=== PATIENT | female | born 1985 | race Caucasian/White ===

== ENCOUNTER 2016-07-31 19:13 | Emergency (ER) | payer OTHER ==
[2016-07-31 19:19] VITALS: BP 142/82
[2016-07-31] MEDS ORDERED: NORMAL SALINE 1,000 ML IV ONE ×2 (19:33→20:07)
[2016-07-31] MEDS ORDERED: METOCLOPRAMIDE HCL 5 MG/ML VIAL IV ONE (19:33)
[2016-07-31] MEDS ORDERED: METOCLOPRAMIDE HCL 5 MG/ML VIAL ONE (19:40)
--- NOTE | 2016-07-31 19:44 | ERNOTE ---
Medical Problem HPI - Narrative Date of Service: 07/31/16 - General Chief Complaint: Nausea/Vomiting Time Seen by Provider: 07/31/16 19:24 Source: patient, RN notes reviewed Exam Limitations: no limitations - Immun/Allergies/Home Medications Immunizations: IMMUNIZATION HX Immunizations Up to Date Yes History of Influenza Vaccine Yes Hx Pneumococcal Vaccination Yes Allergies/Adverse Reactions: Allergies No Known Allergies Allergy (Verified 07/31/16 19:18) Home Medications: HOME MEDICATIONS Atenolol [Tenormin] 25 mg PO DAILY 01/21/14 [Last Taken 10/31/15] busPIRone HCL [Buspar] 15 mg PO BID 01/21/14 [Last Taken 10/31/15] hydrOXYzine PAMOATE [Vistaril] 25 mg PO Q4H PRN 07/31/16 [Last Taken Unknown] - History of Present History Narrative: Sofi is a 31 year old female who presents to the ED for vomiting that began yesterday. She is currently 17 weeks . She has not had any issues with vomiting during this . Her and child have had vomiting and diarrhea in the past few days. She also reports a low grade fever and body aches. Review of Systems - Review of Systems Constitutional: Present: fatigue, malaise EYE: Present: no symptoms reported ENT: Present: no symptoms reported Respiratory: Present: no symptoms reported Cardiology: Absent: chest pain, syncope Gastrointestinal/Abdominal: Present: nausea, vomiting, eating less, drinking less. Absent: diarrhea, abdominal pain Genitourinary: Absent: pain, dysuria, hematuria Musculoskeletal: Present: muscle pain Skin: Present: no symptoms reported Neurological: Absent: headache, dizziness/light-headedness Endocrine: Present: no symptoms reported Hematologic/Lymphatic: Present: no symptoms reported Psych: Present: no symptoms reported - Patient's Past Medical History Patient History - Medical: Anxiety, Hypothyroidism, Kidney stone Patient History - Cardiac/Respiratory: No pertinent hx Patient History - Cancer: No Hx of Cancer Patient History - Surgical Procedures: No surgical history, LMP (females 10-50): - Family History Mother Family History - Medical: Diabetes Type 2 Family History - Cardiac/Respiratory: Hypertension, Hyperlipidemia Father Family History - Medical: Anxiety Family History - Cardiac/Respiratory: No pertinent hx - Social History Living Situations: home Smoking Status: Never smoker Have you smoked in the past 12 months: No Do you dip or chew tobacco: No Alcohol Use: occasionally Drug Use: none Physical Exam - Physical Exam General Appearance: Present: wd/wn, alert, other - appears uncomfortable Neck: Present: normal inspection, nontender, supple Respiratory: Present: no respiratory distress, normal breath sounds, no accessory muscle use, lungs clear Cardiovascular/Chest: Present: regular rate, rhythm, no murmur Gastrointestinal/Abdominal: Present: normal bowel sounds, nontender, soft, distended - gravid uterus Neurological Exam: Present: alert, oriented, normal mood/affect Skin Exam: Present: warm/dry, pallor ED Progress - Vital Signs Patient's Vital Signs:: I have reviewed the patient's vital signs. Vital Signs: Vital Signs 07/31/16 19:16 Temperature 36.1 C L Pulse Rate 106 H Respiratory 14 Rate Blood Pressure 142/82 O2 Sat by Pulse 100 Oximetry - Progress/Reassessment Chief Complaint: Nausea/Vomiting Progress:: Improved Progress Note-Subjective: 07/31/16 20:40 Patient states she is feeling better after IVF and Reglan, discussed oral intake and follow up care Departure - Departure Clinical Impression: Acute vomiting Disposition: Home self-care Condition: Good Instructions: Viral Gastroenteritis, Adult, Sspq-vl-Fbal Additional Instructions: Liquids as discussed - advance diet as tolerated Follow up if symptoms persist/worsen Referrals: Kristin Hawkins MD [Primary Care Provider] -
== END 2016-07-31 21:00 | disposition home or self-care (01) ==
LOC: ER 19:13
DX: R11.10 Vomiting, unspecified (principal); O26.899 Other specified pregnancy related conditions, unspecified trimester; F41.1 Generalized anxiety disorder; Z3A.17 17 weeks gestation of pregnancy

== ENCOUNTER 2016-12-22 10:39 | Inpatient (IN) | payer OTHER ==
[2016-12-22] MEDS ORDERED: ceFAZolin SODIUM/DEXTROSE,ISO 2 GM/50 ML BAG IV ONE (10:49)
[2016-12-22] MEDS ORDERED: DEXTROSE 5%-LACTATED RINGERS 1,000 ML IV PRN ×2 (10:49→13:21)
[2016-12-22] MEDS ORDERED: OXYTOCIN 20 UNITS in RINGERS SOLUTION,LACTATED 1,000 ML IV ONE (10:49)
[2016-12-22] MEDS: RINGERS SOLUTION,LACTATED 1,000 ML IV PRN ×2 (11:02→12:00)
[2016-12-22] MEDS ORDERED: RINGERS SOLUTION,LACTATED 1,000 ML IV ONE (13:06)
[2016-12-22] MEDS ORDERED: hydrOXYzine PAMOATE 25 MG CAPSULE PO PRN (13:21)
[2016-12-22] MEDS ORDERED: BISACODYL 10 MG SUPP.RECT RC PRN (13:21)
[2016-12-22] MEDS ORDERED: SIMETHICONE 80 MG TAB.CHEW PO PRN (13:21)
[2016-12-22] MEDS ORDERED: SENNOSIDES 8.6 MG TABLET PO PRN (13:21)
[2016-12-22] MEDS ORDERED: ONDANSETRON HCL/PF 2 MG/ML VIAL IV PRN (13:21)
--- NOTE | 2016-12-22 13:34 | OR ---
Operative Report - Dictated Report Narrative: Indication: 31-year-old 2 para 01 at 37-6/7 weeks in labor with prior section and desiring permanent sterilization. Pre Operative Diagnosis: 37-6/7 week intrauterine , prior section in active labor, chronic hypertension, insulin-dependent gestational diabetes, anxiety disorder, desires permanent sterilization via bilateral salpingectomy Post Operative Diagnosis: Same. Procedure: Repeat low transverse section. Abdominal scar revision - 5 cm, bilateral salpingectomy Surgeon: Amanda Browne DO Service Delivery Manager: OR staff Anesthesia: Spinal, TAP block Estimated Blood Loss: 225 mL Urine Output: 225 mL clear urine Fluids Replacement: 2200 mL Drains: Andrade to gravity Surgical Complications: None Specimens: Placenta to freezer Findings: Male in cephalic presentation born at 1219 on 12/22/2016 with Apgars 9 and 9, weighing 2865 g. Normal uterus, tubes, ovaries Technique: The patient was taken to the operating room and placed in dorsal supine position with a left lateral tilt. After adequate spinal anesthesia, andrade catheter inserted, SCDs placed, and 2 g of Ancef given preoperatively, a 5cm section of the previous scar was excised in an elliptical fashion and the abdominal cavity was entered using sharp and blunt dissection. Two rolled laps were placed in the pericolic gutters on either side of the uterus. A transverse incision was made in the lower uterine segment and extended laterally and upwardly with digital traction. Clear fluid was noted upon amniotomy. The was delivered easily. The cord was clamped and cut and infant was handed off to awaiting supervisory it specialist. The placenta was allowed to deliver spontaneously. The uterus was cleared of clot and debris. Uterine incision was closed with 0 Vicryl using a running stitch. A second imbricating layer was placed. Excellent hemostasis was noted. The right fallopian tube was identified and followed out the fimbriated end. The tube was coagulated with Kleppinger's approximately 2 simmers from the cornual region and along the mesosalpinx. The tube was excised and the exact same was done on the patient's left side. The rolled laps were removed from the abdominal cavitiy. The peritoneum was closed with a running 3-0 Monocryl. The same suture was used to approximate the rectus and pyramidalis muscles. The fascia was closed with a running 0 Vicryl. The subcutaneous layer was closed with a running 3-0 Monocryl. The same suture was used to approximate the subdermal layer. The skin was closed with a running 4-0 Monocryl and Dermabond. Sponge, lap, needle , and instrument count were correct x 2. Disposition: To post anesthesia care unit in good condition
[2016-12-22] MEDS: oxyCODONE HCL/ACETAMINOPHEN 1 TAB TABLET PO PRN ×3 (14:09→20:38)
[2016-12-22] MEDS: IBUPROFEN 800 MG TABLET PO PRN ×2 (14:09→20:37)
[2016-12-22] MEDS: DOCUSATE SODIUM 100 MG CAPSULE PO SCH (20:37)
[2016-12-22] MEDS: ENOXAPARIN SODIUM 40 MG/0.4 ML SYRG SC SCH (20:37)
[2016-12-23] MEDS: oxyCODONE HCL/ACETAMINOPHEN 1 TAB TABLET PO PRN ×6 (01:06→23:21)
[2016-12-23] MEDS: IBUPROFEN 800 MG TABLET PO PRN ×3 (06:27→19:27)
[2016-12-23] MEDS: PANTOPRAZOLE SODIUM 20 MG TABLET.DR PO SCH (07:55)
[2016-12-23] MEDS: DOCUSATE SODIUM 100 MG CAPSULE PO SCH ×2 (08:00→20:45)
[2016-12-23] MEDS: ATENOLOL 25 MG TABLET PO SCH (08:00)
[2016-12-23] MEDS: PRENATAL VIT#96/FERROUS FUM/FA 1 TAB TABLET PO SCH (10:04)
--- NOTE | 2016-12-23 12:51 | PN ---
Subjective - Date and Time Seen Date: 12/23/16 Time: 12:49 Objective - Vitals Vitals: Last Vital Signs Temp 36.4 C L 12/23/16 11:05 Pulse 77 12/23/16 11:05 Resp 77 H 12/23/16 11:05 BP 118/70 12/23/16 11:05 Pulse Ox 96 12/23/16 11:05 Patient denies complaints. Tolerating regular diet. Ambulating without difficulty. Pain well controlled. Lochia wnl. Fasting blood sugar one-hour postprandial within normal limits Abdomen - soft, appropriately tender Incision - clean, dry, intact Uterus - firm, at umbilicus -1 No calf tenderness Impression: Post op day #1 s/p repeat section with bilateral salpingectomy. Gestational diabetes resolved. Chronic hypertension stable. Plan: Continue routine post-operative/ care Cauti Physician Documentation - Urinary Catheter Management Urethral ([place]) Date of Insertion: 12/22/16 Time of Insertion: 12:15 Date of Removal: 12/23/16 Time of Removal: 00:50
[2016-12-23] MEDS: ENOXAPARIN SODIUM 40 MG/0.4 ML SYRG SC SCH (19:28)
--- NOTE | 2016-12-24 06:26 | PN ---
Subjective - Date and Time Seen Date: 12/24/16 Time: 06:25 Objective - Vitals Vitals: Last Vital Signs Temp 36.2 C L 12/23/16 21:00 Pulse 54 L 12/23/16 23:30 Resp 17 12/23/16 23:30 BP 114/71 12/23/16 23:30 Pulse Ox 98 12/23/16 23:30 Patient denies complaints. Ambulating well. Tolerating regular diet. Pain well controlled. Lochia wnl. Abdomen - soft, appropriately tender Incision - clean, dry, intact Uterus - firm, at umbilicus -2 No calf tenderness Impression: Post op day #2 s/p repeat section with bilateral salpingectomy and abdominal scar revision. Chronic hypertension-stable. Gestational diabetes-resolved. Plan: Continue routine post-operative/ care Cauti Physician Documentation - Urinary Catheter Management Urethral ([place]) Date of Insertion: 12/22/16 Time of Insertion: 12:15 Date of Removal: 12/23/16 Time of Removal: 00:50
[2016-12-24] MEDS: oxyCODONE HCL/ACETAMINOPHEN 1 TAB TABLET PO PRN ×4 (06:37→19:55)
[2016-12-24] MEDS: IBUPROFEN 800 MG TABLET PO PRN ×3 (06:37→19:54)
[2016-12-24] MEDS: PANTOPRAZOLE SODIUM 20 MG TABLET.DR PO SCH (06:45)
[2016-12-24] MEDS: PRENATAL VIT#96/FERROUS FUM/FA 1 TAB TABLET PO SCH (08:40)
[2016-12-24] MEDS: DOCUSATE SODIUM 100 MG CAPSULE PO SCH ×2 (08:41→21:32)
[2016-12-24] MEDS: ATENOLOL 25 MG TABLET PO SCH (08:41)
[2016-12-24] MEDS: ENOXAPARIN SODIUM 40 MG/0.4 ML SYRG SC SCH (21:32)
[2016-12-25] MEDS: oxyCODONE HCL/ACETAMINOPHEN 1 TAB TABLET PO PRN ×3 (00:53→12:17)
[2016-12-25] MEDS: IBUPROFEN 800 MG TABLET PO PRN ×2 (06:34→12:17)
[2016-12-25] MEDS: PANTOPRAZOLE SODIUM 20 MG TABLET.DR PO SCH (06:58)
[2016-12-25] MEDS: DOCUSATE SODIUM 100 MG CAPSULE PO SCH (08:36)
[2016-12-25] MEDS: ATENOLOL 25 MG TABLET PO SCH (08:36)
[2016-12-25] MEDS: PRENATAL VIT#96/FERROUS FUM/FA 1 TAB TABLET PO SCH (08:36)
[2016-12-25 08:37] VITALS: BP 152/86
--- NOTE | 2016-12-25 08:45 | PN ---
Subjective - Date and Time Seen Date: 12/25/16 Time: 08:44 Objective - Vitals Vitals: Last Vital Signs Temp 36.5 C 12/25/16 06:53 Pulse 76 12/25/16 08:36 Resp 18 12/25/16 06:53 BP 152/86 12/25/16 08:36 Pulse Ox 98 12/25/16 06:53 Patient denies complaints. Ambulating without difficulty. Tolerating regular diet. Pain well controlled. Lochia wnl. Abdomen - soft, appropriately tender Incision - clean, dry, intact Uterus - firm, at umbilicus -3 No calf tenderness Impression: Post op day #3 s/p P section. Bilateral salpingectomy. Chronic hypertension-stable. Anxiety/depression stable. Gestational diabetes resolved. Plan: Routine discharge instructions Cauti Physician Documentation - Urinary Catheter Management Urethral ([place]) Date of Insertion: 12/22/16 Time of Insertion: 12:15 Date of Removal: 12/23/16 Time of Removal: 00:50
== END 2016-12-25 15:45 | disposition home or self-care (01) | DRG 765 ==
LOC: OB 10:39 → MS 12-23 15:21
PROVIDERS: ADMIT Obstetrics & Gynecology; ATTEND Obstetrics & Gynecology
PROC: 0UB70ZZ Excision of Bilateral Fallopian Tubes, Open Approach (ICD-10-PCS; 2016-12-22)
PROC: 4A1HXCZ Monitoring of Products of Conception, Cardiac Rate, External Approach (ICD-10-PCS; 2016-12-22)
PROC: 10D00Z1 Extraction of Products of Conception, Low, Open Approach (ICD-10-PCS; principal; 2016-12-22 12:00)
DX: O24.424 Gestational diabetes mellitus in childbirth, insulin controlled (principal); O10.02 Pre-existing essential hypertension complicating childbirth; O34.211 Maternal care for low transverse scar from previous cesarean delivery; Z3A.38 38 weeks gestation of pregnancy; Z37.0 Single live birth; Z30.2 Encounter for sterilization

== ENCOUNTER 2017-03-01 07:37 | Emergency (ER) | payer OTHER ==
[2017-03-01 07:43] VITALS: BP 134/82
--- NOTE | 2017-03-01 08:08 | ERNOTE ---
Lower Extremity HPI - Narrative Date of Service: 03/01/17 - General Lower Extremities Pain: foot: left - pain and swelling Time Seen by Provider: 03/01/17 07:53 Source: patient, family Exam Limitations: no limitations - Immun/Allergies/Home Medications Immunizations: IMMUNIZATION HX Immunizations Up to Date Yes History of Influenza Vaccine Yes Hx Pneumococcal Vaccination Yes Allergies/Adverse Reactions: Allergies Allergy/AdvReac Type Severity Reaction Status Date / Time No Known Allergies Allergy Verified 03/01/17 07:43 Home Medications: HOME MEDICATIONS Atenolol [Tenormin] 25 mg PO DAILY 01/21/14 [Last Taken 12/22/16] Vits96/Iron Fum/Folic [ S] 1 tab PO DAILY 12/15/16 [Last Taken 12/21/16] Ibuprofen [Motrin] 200 - 800 mg PO Q6H PRN #100 tab 12/23/16 [Last Taken Unknown ] ALPRAZolam [Xanax] 0.5 mg PO TID PRN 03/01/17 [Last Taken Unknown] Escitalopram Oxalate [Lexapro] 10 mg PO DAILY 03/01/17 [Last Taken Unknown] HYDROcodone/ACETAMINOPHEN [[place] 7.5-325 Tablet] 1 each PO QID #40 tablet [Last Taken Unknown] - History of Present Illness Narrative: patient [place] and [place]. pain and swelling left dorsum of foot Occurred: yesterday Location of Incident: [place] Method of Injury: Reports: fell, twisted Loss of Consciousness: Reports: no loss of consciousness Modifying Factors - (Improves): Reports: cold therapy Modifying Factors - (Worsens): Reports: movement Associated Symptoms: Reports: unable to bear weight Other Injuries: Reports: none Review of Systems - Review of Systems Constitutional: Present: See HPI EYE: Present: no symptoms reported ENT: Present: no symptoms reported Respiratory: Present: no symptoms reported Cardiology: Present: no symptoms reported Gastrointestinal/Abdominal: Present: no symptoms reported Genitourinary: Present: no symptoms reported Musculoskeletal: Present: See HPI, joint pain, joint swelling Skin: Present: no symptoms reported Neurological: Present: no symptoms reported Endocrine: Present: no symptoms reported Hematologic/Lymphatic: Present: no symptoms reported Psych: Present: no symptoms reported All Other Systems: All systems neg except as marked - Patient's Past Medical History Patient History - Medical: No pertinent hx, Anxiety, Hypothyroidism, Kidney stone Patient History - Cardiac/Respiratory: No pertinent hx, Hypertension Patient History - Cancer: No Hx of Cancer Patient History - Surgical Procedures: , Tubal Ligation Patient History - Other: None LMP (females 10-50): 3 weeks - Family History Family History:: no untoward family reactions to anesthesia, no familial bleeding tendencies, no family history of premature - Family History Mother Family History - Medical: Diabetes Type 2 Family History - Cardiac/Respiratory: Hypertension, Hyperlipidemia Father Family History - Medical: Anxiety Family History - Cardiac/Respiratory: No pertinent hx - Social History Living Situations: home Abuse History: No History of abuse Psych History: Hx of Anxiety Does anyone smoke in the home?: No Smoking Status: Never smoker Have you smoked in the past 12 months: No Do you dip or chew tobacco: No Patient requests Smoking Cessation Consult: No Initiate information on Smoking Cessation: No Alcohol Use: occasionally Drug Use: none - Immunizations Immunizations Up to Date: Yes Hx Pneumococcal Vaccination: Yes History of Influenza Vaccine: Yes Physical Exam - Physical Exam General Appearance: Present: moderate distress Head Exam: Present: normal inspection, no evidence of injury Eye Exam: Normal inspection: bilateral, PERRL: bilateral, EOMI: bilateral Ears, Nose, Throat: Present: normal ENT inspection Neck: Present: normal inspection, nontender Respiratory: Present: no respiratory distress, normal breath sounds, no accessory muscle use, chest nontender, lungs clear Cardiovascular/Chest: Present: regular rate, rhythm, no murmur, normal peripheral pulses Peripheral Pulses: N=norm/S=strong/W=weak/B=bound/A=absent: Carotid (R): Normal , Carotid (L): Normal, Radial (R): Normal, Radial (L): Normal, Femoral (R): Normal, Femoral (L): Normal, Dorsalis-pedis (R): Normal, Dorsalis-pedis (L): Normal Gastrointestinal/Abdominal: Present: normal bowel sounds, nontender, nondistended, soft, no organomegaly Back Exam: Present: normal inspection, normal range of motion, no CVA tenderness , no vertebral tenderness Extremity Exam: Present: extremity edema, other - swelling mid-foot dorsum of left foot DTR: N=norm/NB=norm/brisk/A=abs/DD=dull/dimin/HC=hyperactive: Bicep (R): Normal , Bicep (L): Normal, Tricep (R): Normal, Tricep (L): Normal, Knee (R): Normal, Knee (L): Normal, Ankle (R): Normal, Ankle (L): Normal Skin Exam: Present: normal color, warm/dry ED Progress - Vital Signs Vital Signs: Vital Signs 03/01/17 07:41 Temperature 36.5 C Pulse Rate 112 H Respiratory 12 Rate Blood Pressure 134/82 O2 Sat by Pulse 97 Oximetry - X-Ray X-Ray #1 X-Ray: foot - fractures of proximal 2,3,4 metatarsals , non displaced - Progress/Reassessment Chief Complaint: Foot Injury/Pain Progress:: Unchanged - Transfer of Care Expected Disposition: Discharge Departure Clinical Impression: Metatarsal fracture - Departure Disposition: Home self-care Instructions: Metatarsal Fracture With Rehab-Sports[facility] Referrals: Kristin Hawkins MD [Primary Care Provider] - Prescriptions: HYDROcodone/ACETAMINOPHEN [[place] 7.5-325 Tablet] 1 each PO QID #40 tablet
== END 2017-03-01 08:14 | disposition home or self-care (01) ==
LOC: ER 07:37
PROC: 2W3TX1Z Immobilization of Left Foot using Splint (ICD-10-PCS; principal; 2017-03-01)
DX: M84.475A Pathological fracture, left foot, initial encounter for fracture (principal); W18.30XA Fall on same level, unspecified, initial encounter; Y93.9 Activity, unspecified; Y92.89 Other specified places as the place of occurrence of the external cause